=== PATIENT | male | born 1995 | race Caucasian/White ===

== ENCOUNTER 2021-06-30 14:50 | Emergency (ER) | payer OTHER, SELFPAY ==
--- NOTE | ~2021-06-30 | XR_ITS ---
XR chest 1V portable DATE: 06/30/2021 16:05 INDICATION: Shortness of breath TECHNIQUE: Portable AP chest on 06/30/2021 at 1557 hours COMPARISON: None FINDINGS: Normal heart size. No hilar or mediastinal enlargement. No pulmonary infiltrate or consol idation, pulmonary vascular congestion or pleural effusion or pneumothorax. IMPRESSION: No active cardiopulmonary disease Reviewed, dictated and finalized at location A.
[2021-06-30 15:12] VITALS: BP 127/74; PULSE 100; RESP 16; TEMP 36.4; O2SAT 100
[2021-06-30 15:55] VITALS: PULSE 98; RESP 18; O2SAT 100
--- NOTE | 2021-06-30 17:30 | ED.URI ---
HPI - URI/Sore Throat General Chief Complaint: Upper Respiratory Infection <Dayna Dove PA-C - Last Filed: 06/30/21 17:37> Stated Complaint: positive covid wants pneumonia test <Dayna Dove PA-C - Last Filed: 06/30/21 17:37> Time Seen by Provider: 06/30/21 16:03 <Dayna Dove PA-C - Last Filed: 06/30/21 17:37> Source: patient <Dayna Dove PA-C - Last Filed: 06/30/21 17:37> Mode of arrival: ambulatory <BRONSON Lowery Last Filed: 06/30/21 17:37> Limitations: no limitations <Dayna Dove PA-C - Last Filed: 06/30/21 17:37> History of Present Illness HPI Narrative: This is a 26-year-old male that presents to the emergency department for cold symptoms x1 week. Reports cough, myalgias and headache. Reports he tested positive today for coronavirus. He did not receive the vaccine. He came in today to get checked for pneumonia. Denies fever or shortness of breath. <BRONSON Lowery Last Filed: 06/30/21 17:37> Related Data Home Medications: Home Medications Medication Instructions Recorded Confirmed escitalopram oxalate [Lexapro] 20 mg PO DAILY 12/02/19 12/02/19 <Dayna Dove PA-C - Last Filed: 06/30/21 17:37> Allergies/Adverse Reactions: Allergies Allergy/AdvReac Type Severity Reaction Status Date / Time pollen extracts Allergy Sneezing Verified 12/02/19 13:10 <BRONSON Lowery Last Filed: 06/30/21 17:37> Review of Systems Review of Systems: CONSTITUTIONAL: Denies fever RESPIRATORY: Reports cough. Denies dyspnea. <BRONSON Lowery Last Filed: 06/30/21 17:37> All systems reviewed & are unremarkable except as noted in HPI and below <BRONSON Lowery Last Filed: 06/30/21 17:37> [facility] Past Medical History Medical History: Medical History (Updated 06/30/21 @ 17:37 by Dayna Dove PA-C) History of depression <Dayna Dove PA-C - Last Filed: 06/30/21 17:37> Social History Social History: Social History (Updated 06/30/21 @ 17:33 by Dayna Dove PA-C) Substance use: never Gender identity (if verbalized by the patient): Male <Dayna Dove PA-C - Last Filed: 06/30/21 17:37> Exam Narrative: GENERAL: Well-appearing, well-nourished, and in no acute distress. HEAD: Normocephalic, atraumatic. EYES: EOMI. ENT: Nares clear, no rhinorrhea or epistaxis. Mucous membranes moist. Oropharynx without tonsillar hypertrophy exudate or other lesions. Bilateral TMs pearly kim non-bulging NECK: Supple. No adenopathy or masses. CHEST: Clear to auscultation. No respiratory distress. No wheezes rales or rhonchi HEART: Regular rate and rhythm. No murmur heard. Normal peripheral pulses. EXTREMITIES: Normal range of motion. No edema. SKIN: Warm, dry, no rash. NEURO: No focal deficits. Alert and oriented x3. PSYCH: Normal mood and affect <Dayna Dove PA-C - Last Filed: 06/30/21 17:37> Course Vital Signs Vital signs: Vital Signs Temperature 36.4 C L 06/30/21 15:12 Pulse Rate 100 06/30/21 15:12 Respiratory Rate 16 06/30/21 15:12 Blood Pressure 127/74 06/30/21 15:12 Pulse Oximetry 100 06/30/21 15:12 Temperature 36.4 C L 06/30/21 15:12 Pulse Rate 98 06/30/21 15:55 Respiratory Rate 18 06/30/21 15:55 Blood Pressure 127/74 06/30/21 15:12 Pulse Oximetry 100 06/30/21 15:55 <Dayna Dove PA-C - Last Filed: 06/30/21 17:37> Vital Signs Temperature 36.4 C L 06/30/21 15:12 Pulse Rate 100 06/30/21 15:12 Respiratory Rate 16 06/30/21 15:12 Blood Pressure 127/74 06/30/21 15:12 Pulse Oximetry 100 06/30/21 15:12 Temperature 36.4 C L 06/30/21 15:12 Pulse Rate 98 06/30/21 15:55 Respiratory Rate 18 06/30/21 15:55 Blood Pressure 127/74 06/30/21 15:12 Pulse Oximetry 100 06/30/21 15:55 <Fish Mcleod MD - Last Filed: 06/30/21 18:40> MDM - URI/Sore Throat MDM Narrative Medical decision making
== END 2021-06-30 17:47 | disposition home or self-care (01) ==
PROVIDERS: Emergency Provider Emergency Medicine
DX: U07.1 COVID-19 (principal); F32.9 Major depressive disorder, single episode, unspecified
CPT/HCPCS: 71045; 99283

== ENCOUNTER 2022-06-07 18:34 | Emergency (ER) | payer OTHER, SELFPAY ==
--- NOTE | 2022-06-07 19:09 | ED.LOWEXIN ---
HPI - Extremity Injury (Lower) General Chief Complaint: Extremity Injury, Lower Stated Complaint: injuries to bilateral legs x 1 day Time Seen by Provider: 06/07/22 18:57 History of Present Illness HPI Narrative: 27-year-old male states that he was pouring concrete yesterday when some concrete got onto his vision legs and right arm,. And he now has some abrasions to his legs. He states that he did clean them off yesterday and put some vinegar on them, he states that his tetanus shot is up-to-date.. Patient be observed denies any systemic symptoms. No confusion no difficulty ambulating. Related Data Home Medications Medication Instructions Recorded Confirmed escitalopram oxalate 20 mg tablet 20 mg PO DAILY 12/02/19 12/02/19 (Lexapro) Allergies Allergy/AdvReac Type Severity Reaction Status Date / Time pollen extracts Allergy Sneezing Verified 06/07/22 18:35 Review of Systems Review of Systems: CONST: No fever. M/S: abrasions bilateral legs SKIN: abrasions bilateral legs PMFSH Past Medical History Medical History History of depression Social History Social History Substance use: never Gender identity (if verbalized by the patient): Male Exam Narrative: EXAMINATION OF ORGAN SYSTEMS/BODY AREAS: Constitutional: Vital signs per nursing GENERAL:[No acute distress, non-toxic appearing.] HEAD: Normal with no signs of head trauma. EYES: EOMI, conjunctiva normal ENT: Hearing grossly intact LUNGS: Nonlabored breathing. HEART: [Regular rate and rhythm] EXT: Normal range of motion SKIN: Superficial abrasions bilateral legs which are minimally tender NEURO: [Alert and oriented x 3. No gross focal sensory or strength deficits.] PSYCH: Normal affect MDM - Extremity Injury (Lower) MDM Narrative Medical decision making narrative: 27-year-old male presenting with abrasions to bilateral legs yesterday, vital signs normal, exam shows several superficial abrasions to bilateral lower legs that are clean, not contaminated. The wounds will be cleaned and dressed here with antibiotic ointment applied, he is instructed on wound care, I discussed the risks and benefits of prophylactic antibiotics at this time given noncontaminated shallow abrasions, with risks of side effects outweighing benefits given low likelihood of infection. Followup to a PCP provided and return precautions provided. Discharge Plan Discharge Clinical Impression: Abrasion Patient Disposition: Home, Self-Care Condition: Stable Instructions: Antibiotic Form, Abrasion (ED) Additional Instructions: Please keep the wounds clean and dressed; if you notice any increased redness or pain or discharge you can come back or follow up with the doctor. Prescriptions: No Action escitalopram oxalate [Lexapro] 20 mg Tablet 20 mg PO DAILY cetirizine-pseudoephedrine [Zyrtec-D] 5-120 mg tablet extended release 12 hr 1 tablet PO Q12H PRN (Reason: nasal congestion) Qty: 12 0RF amoxicillin 875 mg tablet 875 mg PO TID 10 Days Qty: 30 0RF fluticasone propionate [Flonase Allergy Relief] 50 mcg/actuation spray,suspension 2 spray NASAL DAILY 14 Days Qty: 15.8 0RF Rx Instructions: administer into each nostril promethazine-DM 6.25-15 mg/5 mL syrup 5 ml PO Q4-6H PRN (Reason: cough) Qty: 120 0RF Follow-up/Referrals: Jorge Jarvis MD [Physician] - 2 Days UNKNOWN,DOCTOR [Primary Care Provider] -
[2022-06-07] MEDS: NEOMYCIN/POLYMYXIN/BACITRACIN OINTMENT PACKET 1 PACKET TOPICAL (19:19)
== END 2022-06-07 19:42 | disposition home or self-care (01) ==
LOC: ANHED 19:21
PROVIDERS: Emergency Provider Emergency Medicine
DX: S80.812A Abrasion, left lower leg, initial encounter (principal); S80.811A Abrasion, right lower leg, initial encounter; X58.XXXA Exposure to other specified factors, initial encounter
CPT/HCPCS: 99282

== ENCOUNTER 2024-11-19 13:13 | Emergency (ER) | payer OTHER, SELFPAY ==
[2024-11-19 13:18] VITALS: BP 148/84; PULSE 122; RESP 20; TEMP 36.2; O2SAT 100
--- NOTE | 2024-11-19 13:56 | ED.URI ---
HPI - URI/Sore Throat General Chief Complaint: Upper Respiratory Infection Stated Complaint: Sinus/Diarrhea Time Seen by Provider: 11/19/24 13:56 Source: patient, RN notes reviewed and old records reviewed Mode of arrival: ambulatory Limitations: no limitations History of Present Illness HPI Narrative: 29-year-old male presents to the [facility] with complaints sinus congestion that started yesterday. Reports diarrhea, abdominal cramping since 4:00 a.m.. No treatment prior to arrival Patient denies fever. Patient reports last time he felt like this he had COVID. Onset (ago): day(s) (1) Related Data Home Medications ?Medication ?Instructions ?Recorded ?Confirmed ?Last Taken ?Type escitalopram oxalate 20 mg tablet 20 mg PO DAILY 12/02/19 12/02/19 Unknown History (Lexapro) Allergies Allergy/AdvReac Type Severity Reaction Status Date / Time pollen extracts Allergy Sneezing Verified 11/19/24 13:27 Review of Systems Review of Systems: All systems reviewed & are unremarkable except as noted in HPI and below Constitutional: Constitutional: Reports as per HPI and Reports headache(s) ENT: Reports as per HPI and Reports sinus pressure Cardiovascular: Cardiovascular: Reports no additional cardiovascular complaints, Denies chest pain and Denies dyspnea Respiratory: Respiratory: Reports no additional respiratory complaints, Denies chest congestion, Denies cough and Denies dyspnea Musculoskeletal: Musculoskeletal: Reports no additional musculoskeletal complaints Integumentary/Breasts: Skin/Breast: Reports system reviewed and no additional complaints, except as docu PMFSH Past Medical History Medical History History of depression Social History Social History Substance use: never Gender identity (if verbalized by the patient): Male Comments At the time of my signature, I reviewed and agree with the nursing past medical, surgical, social, and family history. There is no relevant family history pertinent to the patient complaint. Exam Const: General: cooperative, healthy appearing, comfortable, no acute distress, well developed, alert and well nourished Nutritional Appearance: well nourished Orientation/consciousness: patient oriented x3 Limitations: no limitations HENMT: Head: normal to inspection Ears: hearing grossly normal bilaterally, external ears normal, TM's normal bilaterally, EAC's normal, mastoids normal and no periauricular adenopathy Mouth: Yes Normal oral and palatal mucosa present, Yes lip normal, Yes tongue normal and No moist mucous membranes Throat: posterior oropharynx normal, tonsils normal, uvula midline and no uvular edema Eyes: General: appearance normal, both eyes and all related structures Alignment and Position: alignment normal Neck: Neck: normal visual inspection, full ROM, no lymphadenopathy and no meningeal signs Chest: Chest palpation & inspection: normal inspection of the chest Resp: Effort & Inspection: normal respiratory effort and able to speak in complete sentences Auscultation: clear to auscultation bilaterally, no crackles, no rales, no rhonchi and no wheezes Cardio: Rate: regular rate GI: GI Palp: No abdominal tenderness Skin: General skin exam: normal color and no rashes or lesions noted Neuro: General: patient oriented x3, gait normal, moves all extremities and no meningeal signs Cognition (Neuro): normal cognition Speech: normal speech Gait exam (Neuro): Normal gait present Extrem: General: normal to inspection, full ROM, capillary refill normal and normal gait Psych: Appearance: grossly normal and well kempt Mental Status: mental status grossly normal Speech and movement: Normal speech and movement present and Clear speech present Affect: normal affect Attitude: cooperative Course Course Level of Care: Express Care Visit Vital Signs Vital signs: Vital Signs Temperature 97.2 F L 11/19/24 13:18 Pulse Rate 122 H 11/19/24 13:18 Respiratory Rate 20 11/19/24 13:18 Blood Pressure 148/84 H 11/19/24 13:18 Pulse Oximetry 100 11/19/24 13:18 Oxygen Delivery Room Air 11/19/24 13:18 Temperature 97.2 F L 11/19/24 13:18 Pulse Rate 122 H 11/19/24 13:18 Respiratory Rate 20 11/19/24 13:18 Blood Pressure 148/84 H 11/19/24 13:18 Pulse Oximetry 100 11/19/24 13:18 Oxygen Delivery Room Air 11/19/24 13:18 Reviewed MDM - URI/Sore Throat MDM Narrative Medical decision making narrative: Patient sitting comfortably in exam room. Nontoxic, vitals stable except blood pressure mildly elevated, patient pulse slightly elevated. Patient presents with a 1 day history of sinus congestion, approximately 9 hours of nausea, diarrhea. Symptoms most likely an oral virus. Patient was flu and COVID negative in clinic. Patient appropriate for outpatient treatment for nausea control. Strict signs and symptoms to proceed to the emergency room were discussed with patient who verbalized understanding Discharge instructions reviewed with patient, as well as provided in writing per nursing staff. The instructions also include specific and strict return/GO TO THE ER as well as f/u information. All questions have been answered, and the patient deny any further questions with discharge and discharge plan. Some parts of this dictation were generated by voice recognition software and may contain typographical and/or grammatical inaccuracies. Differential Diagnosis Differential diagnosis: Likely upper respiratory infection, otitis media, sinusitis, viral infection and influenza Lab Data Labs: Lab Results 11/19/24 Range/Units 13:22 POC Influenza A Ag Negative (Negative) POC Influenza B Ag Negative (Negative) POC SARS CoV-2 Ag Negative (Negative) Reviewed Critical Care Time Critical Care Time Critical Care Time: No Discharge Plan Discharge Clinical Impression: Gastroenteritis Sinusitis Qualifiers: Sinusitis location: unspecified location Chronicity: acute Recurrence: not specified as recurrent Qualified Code(s): J01.90 - Acute sinusitis, unspecified Patient Disposition: Home, Self-Care Condition: Stable Instructions: Sinusitis (ED), Gastroenteritis (DC), Acute Nausea and Vomiting (ED) Additional Instructions: Your rapid COVID test were negative Your rapid flu test was negative You take the Zofran as needed for nausea. Stay hydrated with plenty of water, Gatorade, Pedialyte. If you cannot keep fluids down or feel dehydrated please go to the emergency room for further evaluation, testing and treatment. Today your blood pressure was 148/84. Is important you follow-up with your primary care provider for a recheck. Your symptoms are likely due to a viral illness, which is not treated with antibiotics. Typically viral infections last 7-10 days, can linger for couple of weeks. It is very important to treat your symptoms. Drink plenty of water, Gatorade, Pedialyte, ice pops or Jell-O. -Alternate Tylenol and Motrin per package directions for fever or pain. You can alternate every 4 hours -Antihistamine medication such as Zyrtec/Claritin/Christa during the day can help improve symptoms. -doing daily nasal irrigations can help relieve pressure your sinuses. Things like a Neti pot -Use Flonase twice a day for 5 days then daily to help reduce the inflammation and dry up your sinuses. -You can also use Mucinex. Be sure to drink plenty of water with this medication at least 8 ounces with every dose and it is important to drink 8 to 10 glasses of water per day. Water is a natural decongestant -Eat and drink things that are easy to swallow, like tea or soup, or popsicles. -Oral rinses such as: Salt water gargles and/or may use topical anesthetic (eg. Chloraseptic spray) or lozenges to relieve dryness or throat pain). -Frequent hand washing or hand disabilities services officer is one of the best ways to prevent spread of infection. -Using a vaporizer or humidifier at night will also help thin secretions and help with coughing up phlegm. -Follow up with primary care provider in 7-10 days if condition is not improving - For new or worsening symptoms go directly to the nearest ER Patient Language: Brazilian Prescriptions: New ondansetron 4 mg tablet,disintegrating 4 mg PO Q8H PRN (Reason: nausea and vomiting) Qty: 7 0RF No Action escitalopram oxalate [Lexapro] 20 mg Tablet 20 mg PO DAILY Follow-up/Referrals: Mane Fierro DO [Physician] - 1 Week (express care follow up) PHYSICIAN,CVICU NURSE [Primary Care Provider] - Stand Alone Forms: Work/School Release IP Time of Disposition: 14:10
[2024-11-19 14:02] LABS: EDCOVIDSCREEN Negative (Negative); EDINFLUASCREEN Negative (Negative); EDINFLUBSCREEN Negative (Negative)
== END 2024-11-19 14:15 | disposition home or self-care (01) ==
PROVIDERS: Emergency Provider Nurse Practitioner
DX: K52.9 Noninfective gastroenteritis and colitis, unspecified (principal); J01.90 Acute sinusitis, unspecified; Z20.822 Contact with and (suspected) exposure to COVID-19; F32.A Depression, unspecified
CPT/HCPCS: 87426; 87804; 99213; G0463